=== PATIENT | female | born 1995 | race Caucasian/White ===

== ENCOUNTER 2023-10-14 00:02 | Inpatient (IN) | payer OTHER ==
[2023-10-14 10:35] VITALS: RESP 16; BMI 24.4
[2023-10-14] MEDS ORDERED: COLLOIDAL OATMEAL 1 BAR EACH TP PRN (13:52)
[2023-10-14] MEDS ORDERED: POLYETHYLENE GLYCOL (HEALTHYLAX) 3350 17 GM PACKET PO PRN (13:52)
[2023-10-14] MEDS ORDERED: guaiFENesin 600 MG TABLET.ER (FP) PO PRN (13:52)
[2023-10-14] MEDS ORDERED: MAG HYDROX/AL HYDROX/SIMETH 30 ML UNIT-DOSE CUP PO PRN (13:52)
[2023-10-14] MEDS ORDERED: BENZOCAINE/MENTHOL (CHLORASEPTIC ) LOZENGE MM PRN (13:52)
[2023-10-14] MEDS ORDERED: ACETAMINOPHEN 325 MG TABLET (FP) PO PRN (13:52)
[2023-10-14] MEDS ORDERED: IBUPROFEN 400 MG TABLET (FP) PO PRN (13:52)
[2023-10-14] MEDS ORDERED: hydrOXYzine PAMOATE 25 MG CAPSULE (FP) PO PRN (13:52)
[2023-10-14] MEDS ORDERED: MAGNESIUM HYDROX 2400MG/30ML ORAL SUSPENSION 30 ML CUP PO PRN (13:52)
[2023-10-14] MEDS ORDERED: P-EPHED 60MG/TRIPROLIDI 2.5MG TABLET PO PRN (13:52)
[2023-10-14] MEDS ORDERED: IBUPROFEN 600 MG TABLET (FP) PO PRN (13:52)
[2023-10-14] MEDS ORDERED: LOPERAMIDE HCL 2 MG CAPSULE PO PRN (13:52)
[2023-10-14] MEDS ORDERED: BENZONATATE 200 MG CAPSULE PO PRN (13:52)
[2023-10-14] MEDS ORDERED: TUBERCULIN PPD 5 TU/0.1ML VIAL ID ONE ×2 (14:24→14:45)
[2023-10-14] MEDS ORDERED: THIAMINE HCL 100 MG TABLET (FP) PO SCH (22:00)
[2023-10-14] MEDS ORDERED: MELATONIN 5 MG TABLETS PO SCH (22:00)
[2023-10-15 07:10] VITALS: BP 116/75; PULSE 73; TEMP 96.9
[2023-10-15 08:57] LABS: HEMATOCRIT 33.9 % (32.4-45.2); HEMOGLOBIN 11.3 GM/dL (10.7-15.3); MCH 31.1 pg (25.7-33.7); MCHC 33.3 g/dl (32.0-36.0); MEAN CELL VOLUME 93.5 fl (80-96); PLATELET COUNT 259 10^3/uL (134-434); RBC 3.62 M/mm3 (3.60-5.2); RDW 14.9 % (11.6-15.6); WHITE BLOOD COUNT 5.4 K/mm3 (4.0-10.0)
[2023-10-15 09:01] LABS: ALBUMIN 3.3 g/dl (3.4-5.0); BLOOD UREA NITROGEN 13.5 mg/dL (7-18); CREATININE 0.7 mg/dL (0.55-1.3)
[2023-10-15 09:02] LABS: CALCIUM 8.3 mg/dL (8.5-10.1)
[2023-10-15 09:03] LABS: URINE APPEARANCE CLEAR; URINE BILIRUBIN NEGATIVE (NEGATIVE); URINE COLOR YELLOW; URINE GLUCOSE (UA) NEGATIVE (NEGATIVE); URINE KETONE NEGATIVE (NEGATIVE); URINE LEUK ESTERASE NEGATIVE (NEGATIVE); URINE NITRITE NEGATIVE (NEGATIVE); URINE PROTEIN NEGATIVE (NEGATIVE); URINE UROBILINOGEN 0.2 mg/dL (0.2-1.0)
[2023-10-15 09:03] LABS: BILIRUBIN,TOTAL 0.2 mg/dL (0.2-1); TOT PROT 5.7 g/dl (6.4-8.2)
[2023-10-15] MEDS ORDERED: PRENATAL VITAMINS W/ FOLIC ACID TABLET (FP) PO SCH (10:00)
[2023-10-15] MEDS: NICOTINE POLACRILEX 2 MG GUM BUC PRN ×2 (11:07→15:45)
[2023-10-15 15:33] LABS: SYPHILIS W/ RPR CONF NON-REACTIVE (NONREACTIVE)
== END 2023-10-15 16:20 | disposition left against medical advice (07) | DRG 770 ==
LOC: YASAS 00:02 → Y5N 14:02
PROVIDERS: ADMIT Allergy & Immunology; ATTEND Psychiatry & Neurology Pain Medicine
PROC: HZ42ZZZ Group Counseling for Substance Abuse Treatment, Cognitive-Behavioral (ICD-10-PCS; principal; 2023-10-14)
DX: F10.230 Alcohol dependence with withdrawal, uncomplicated (principal); F15.20 Other stimulant dependence, uncomplicated; F12.20 Cannabis dependence, uncomplicated; F17.210 Nicotine dependence, cigarettes, uncomplicated; Z59.02 Unsheltered homelessness
CPT/HCPCS: 36415; 80053; 80305; 81003; 81025; 85027; 86780; 86803; 87635; 87811